=== PATIENT | male | born 2000 | race Caucasian/White ===

== ENCOUNTER 2024-03-22 11:15 | Emergency (ER) | payer BC, SELFPAY ==
[2024-03-22 11:21] VITALS: BP 153/99
--- NOTE | 2024-03-22 11:55 | ED.GENMED ---
History of Present Illness
General
Chief Complaint: Cold/Flu/URI Symptoms
Source: patient
Exam Limitations: none
Time Seen by Provider: 03/22/24 11:25
Nursing documentation reviewed up to this point in time: agreed with
Travel History
Have you had any contact with someone who has COVID-19?: No
Do you have any symptoms of coronavirus? Fever > 100 degrees, chills, cough, shortness of breath, sore throat, loss of taste or smell, muscle aches, or headache?: Yes
Symptoms:: cough
History of Present Illness
History of Present Illness:
24-year-old male with past medical history of hypertension presents to the emergency room for evaluation of flulike illness. Patient reports onset of symptoms 2 days ago and have been constant since that time. He reports cough, congestion. He
reports he has had nausea, nonbloody nonbilious vomiting, nonbloody diarrhea. He reports some occasional crampy abdominal pain. He says he is starting to feel dizzy/lightheaded. Decided he should come to the emergency to be assessed. Denies any
significant chest pain or shortness of breath. He denies any objective fever but says he did have subjective fever/chills at home. He denies any other complaints. He denies any known sick contacts.
Review of Systems
Review of Systems
All Other Systems: ROS reviewed and negative except as documented in HPI and ROS
Constitutional: Reports fever, fatigue and chills
EENT: Reports runny nose and other (Congestion); Denies sore throat
Respiratory: Reports cough; Denies trouble breathing
Cardiac: Denies chest pain or palpitations
ABD/GI: Reports abdominal pain (Occasional cramping), nausea, vomiting and diarrhea
: Denies flank pain
Musculoskeletal: Denies neck pain or back pain
Neurological: Denies headache, weakness or numbness
Phy Exam
Physical Exam
Physical Exam:
General: Awake, alert, oriented x3; no acute distress
Head: Normocephalic, atraumatic
Eyes: Conjunctiva normal, EOMI, pupils equal round and reactive to light bilateral
Throat: Airway intact, mucous membranes slightly dry, no tonsillar erythema or exudate, midline uvula
Neck: Trachea midline, supple without meningismus
Lungs: Clear to auscultation bilaterally, no wheezing, rales, rhonchi
Heart: Regular rate and rhythm, no murmurs, gallops, or rubs
Abd: Soft, non distended, nontender
Neuro: Cranial nerves grossly intact, speech fluid
Skin: no rash
Extremities: No edema in extremities, equal pulses in all extremities
Scores
Heart Failure Risk
Heart Failure Risk Score: Not Applicable
Heart Score for Chest Pain Patients
STEMI patient?: Not applicable
Withdrawal Assessment of Alcohol
Withdrawal Assessment Completed?: Not applicable
Course
Orders/Labs/Results
Orders:
Orders
03/22/24 11:25
Ondansetron Injectable [Zofran] 4 mg IV NOW STA
03/22/24 11:26
0.9% Sodium Chloride 1000 ml [Nss] 1,000 ml IV BOLUS
03/22/24 11:45
STOOL [C difficile Antigen & Toxins] Urgent
ERNESTO Source: Feces/Stool
Specimen Description:
Date Specimen was Collected: 03/22/24
Time Specimen was Collected: 12:27
Stool Culture Urgent
ERNETSO Source: Feces/Stool
Specimen Description:
Date Specimen was Collected: 03/22/24
Time Specimen was Collected: 12:27
03/22/24 11:46
Electrocardiogram (*1) Urgent
Reason for Study: Syncope
EKG- Treatment ONCE
03/22/24 11:53
COVID-19 Antigen Urgent
Source: Nasal Swab
Complete Blood Count/With Diff Urgent
Comprehensive Metabolic Panel Urgent
Influenza A+B Rapid Molecular Urgent
ERNESTO Source: Nasal Swab
Specimen Description:
Abnormal Lab Results
03/22/24
11:53
MCV 77.7 L fL
(80.0-94.0)
MCH 26.3 L pg
(27.0-31.0)
BUN 8 L mg/dl
(9-20)
Glucose 104 H mg/dl
(70-99)
AST 16 L U/L
(17-59)
Albumin 5.2 H g/dl
(3.5-5.0)
03/22/24 11:53
03/22/24 11:53
Vital Signs
Initial and Last Documented VS:
Initial Vital Signs
Temp Pulse Resp BP Pulse Ox
36.9 C 65 16 153/99 98
03/22/24 11:21 03/22/24 11:21 03/22/24 11:21 03/22/24 11:21 03/22/24 11:21
Last Documented Vital Signs
Temp Pulse Resp BP Pulse Ox
36.9 C 60 18 142/77 98
03/22/24 11:21 03/22/24 12:01 03/22/24 12:01 03/22/24 12:01 03/22/24 12:01
MDM/Problems Addressed
Differential Diagnosis Includes:
Viral syndrome, dehydration, colitis/enteritis
MDM/Problems Addressed:
24-year-old male presents for evaluation of flulike illness over the past 48 hours. He reports nausea, vomiting, diarrhea, cough and congestion with subjective fevers and chills and significant fatigue/dizziness. His blood pressure is slightly
elevated but his vital signs are otherwise normal. His exam is as above�clinically does appear slightly dehydrated suspect this is likely cause of his increasing fatigue and dizziness likely related to his GI symptoms. He has had occasional crampy
abdominal pain but he has no abdominal tenderness and very low suspicion based on his history and exam that there is acute intra-abdominal emergency�will forego abdominal imaging for now. Will check basic labs including a CBC and chemistry. Will
swab for COVID and flu. Will send stool studies if patient is able to provide a sample. Will treat nausea and provide IV fluids for hydration. Check a screening EKG. Will monitor closely reassess after the above.
Labs reviewed: CBC unremarkable, CMP no clinically significant abnormalities. COVID swab negative. Patient feeling better after fluids and Zofran. Suspect likely dehydration secondary to viral syndrome with vomiting and diarrhea. I think he is
stable for discharge. Will prescribe Zofran as needed for nausea. Advised him to drink plenty of fluids. Tylenol and Motrin as needed for fevers. Follow-up with primary doctor as an outpatient. Spoke about return precautions and all questions
answered.
Acute Exacerbation and/or Progression of Chronic Illness:
Acutely hypertensive
Acute Exacerbation and/or Progression of Chronic Illness: HTN
*Pulse Oximetry
Patient hypoxic: no
*Critical Care Note
Total Time (30-74mins, 75-104mins- exclusive of procedures): Not Applicable
Data Reviewed
Source: patient
ED Attending Note
-
Portions of this chart may have been created with voice recognition software.� Occasional wrong word or��sound alike� substitutions may have occurred due to the inherent limitations of voice recognition software.
Discharge Plan
Departure
Patient Disposition: Home (Routine Discharge)
Date of Disposition: 03/22/24
Time of Disposition: 12:33
Patient with high blood pressure during this ER visit?: Yes
Discharge Problem:
Acute viral syndrome, Acute dehydration
Instructions: Viral gastroenteritis in adults, Dehydration, Adult ED
Referrals:
Delvis Kumar MD [Family Provider] - Follow up in 2-3 days
Activity Restrictions/Additional Instructions:
Thank you for visiting the Emergency Department at [facility].
1. Please schedule a follow up appointment as directed. Call first thing tomorrow morning to make an appointment.
2. If indicated, please take your medications as instructed and indicated on discharge paperwork.
3. If any of your symptoms do not improve, or persist, or become more severe within 6-12 hours, please return to the emergency department for further care.
4. Please return to the emergency department if you develop a headache, neck pain/stiffness, fever greater than 100.4F, chest pain, shortness of breath, persistent nausea, vomiting, slurred speech, difficulty walking, numbness/tingling, weakness,
signs of infection or any other symptoms that are worrisome to you.
Please call [phone] if you have any questions.
Interventions
Interventions:
*Risk Screen - Suicide Last Done: 03/22/24 12:02
*General Assessment Last Done: 03/22/24 12:02
*Neglect/Abuse Screening Last Done: 03/22/24 12:02
ED- Fall Risk Assessment Last Done: 03/22/24 12:03
*ED COVID-19 Vaccine History Last Done: 03/22/24 12:02
ED- Pulmonary Assessment Last Done: 03/22/24 12:03
Discharge Date and Time
Print Language: SERBIAN
[2024-03-22] MEDS: ZOFRAN 4 MG IV (11:56)
[2024-03-22] MEDS: NSS 1000 IV (11:56)
[2024-03-22 12:01] VITALS: BP 142/77
[2024-03-22 12:03] LABS: % Basophils 0.2 % (0-2); % Eosinophils 0.7 % (0-6); % Immature Granulocytes 0.2 % (0-0.5); % Lymphocytes 23.1 % (20.5-51.1); % Monocytes 8.9 % (1.7-9.3); % Neutrophils 66.9 % (42.2-75.2); Absolute Lymphocytes 1.3 10^3/uL (1.2-3.4); Absolute Monocytes 0.5 10^3/uL (0.1-0.6); Absolute Neutrophils 3.8 10^3/uL (1.4-6.5); Hemoglobin 14.9 g/dL (13.0-18.0); Mean Corp Hgb Conc. 33.9 g/dL (33.0-37.0); Mean Corpuscular Hgb 26.3 pg (27.0-31.0); Mean Corpuscular Volume 77.7 fL (80.0-94.0); Mean Platelet Volume 10.3 fL (7.4-10.4); Nucleated Red Blood Cells % 0 % (-); Platelet Count 198 10^3/uL (130-400); Red Blood Cell Count 5.66 10^6/uL (4.70-6.10); Red Cell Dist. Width 12.7 % (11.5-14.5); White Blood Cell Count 5.6 10^3/uL (4.8-10.8)
[2024-03-22 12:24] LABS: ALT (SGPT) 24 U/L (0-50); AST (SGOT) 16 U/L (17-59); Albumin 5.2 g/dl (3.5-5.0); Alkaline Phosphatase 67 U/L (38-126); Blood Urea Nitrogen 8 mg/dl (9-20); Carbon Dioxide 26 mmol/L (22-30); Chloride 102 mmol/L (98-107); Glucose 104 mg/dl (70-99); Potassium 4.9 mmol/L (3.5-5.1); Sodium 139 mmol/L (135-145); Total Bilirubin 0.4 mg/dl (0.2-1.3); Total Protein 7.8 g/dl (6.3-8.2); eGFR > 60.00
[2024-03-22 12:28] LABS: COVID-19 Antigen Negative (Negative)
[2024-03-22 12:43] VITALS: BP 132/88
== END 2024-03-22 13:29 | disposition home or self-care (01) ==
LOC: EMR 11:15
PROVIDERS: EMERGENCY PHYSICIAN Emergency Medicine; FAMILY PHYSICIAN Family Medicine
DX: B34.9 Viral infection, unspecified (principal); E86.0 Dehydration; I10 Essential (primary) hypertension
CPT/HCPCS: 99283; 96374; 96361; 80053; 85025; 87045; 87046; 87324; 87427; 87449; 87502; 87811; 93005